=== PATIENT | male | born 1945 | race Caucasian/White ===

== ENCOUNTER → 2020-05-04 | Day surgery (SDC) | payer MEDICARE ==
[2020-04-29 11:15] LABS: BASOPHILS # (AUTO) 0.1 (0.0-0.1); BASOPHILS % 1.1 % (0.0-1.0); EOSINOPHILS # (AUTO) 0.1 (0.0-0.4); EOSINOPHILS % 2.9 % (0.0-6.0); HEMATOCRIT 39.2 % (38.2-49.6); HEMOGLOBIN 12.9 g/dL (14.0-18.0); LYMPHOCYTES # (AUTO) 1.3 (1.0-3.2); LYMPHOCYTES % 28.4 % (18.0-39.1); MEAN CORPUSCULAR HGB CONC 32.9 g/dL (31-35); MEAN CORPUSCULAR VOLUME 97.3 fL (81-99); MONOCYTES # (AUTO) 0.6 (0.2-0.8); MONOCYTES % 12.6 % (4.4-11.3); NEUTROPHILS # (AUTO) 2.4 (2.1-6.9); PLATELET COUNT 187 x10e3/uL (140-360); RED BLOOD COUNT 4.03 x10e6/uL (4.3-5.7); RED CELL DISTRIBUTION WIDTH 13.4 % (11.7-14.4)
--- NOTE | 2020-04-29 11:53 | Diagnostic Imaging Report ---
EXAMINATION: CHEST 2 VIEWS INDICATION: Pre-operative COMPARISON: None FINDINGS: LINES/TUBES:None LUNGS:The lungs are well-inflated. No focal consolidation or pulmonary edema. PLEURA:No pleural effusion or pneumothorax. MEDIASTINUM:The cardiomediastinal silhouette appears normal in size and shape. BONES/SOFT TISSUES:No acute osseous injury. ABDOMEN:No free air under the diaphragm. IMPRESSION: No focal pneumonia or pulmonary edema. Signed by: Candace Vaughn MD on 04/29/2020 11:49 AM
[2020-04-29 15:03] LABS: ANION GAP 16.9 mmol/L (8-16); CALCIUM 9.4 mg/dL (8.4-10.2); CREATININE, SERUM 1.31 mg/dL (0.72-1.25); POTASSIUM 3.9 mmol/L (3.5-5.1)
[~2020-05-04] MED LIST: ACTOS45 MG; ATORVASTATIN CA20 MG PO; BUPIVACAINE HCL 0.5% INJ 30 ML VIAL INJ ONE; BYETTA10 MCG/0.0; CEFAZOLIN SOD 1 GM/NS 50ML 100 ML IV ONE; DEXAMETHASONE SOD PHOS INJ 4 MG/ML VIAL ONE; DEXTROSE 5% 250ML 250 ML IV ONE; DILTIAZEM 24HR180 MG; DYMISTA NASAL S23 GM IH; EPINEPHRINE 1 MG/ML 30ML VIAL ONE; EPINEPHRINE HCL 1:1000 1ML 1 MG/ML AMP ONE; FENTANYL CITRATE/PF 100MCG/2 ML INJ ONE; FINASTERIDE5 MG PO; FLOMAX0.4 MG PO; GLUCOTROL10 MG; KETOROLAC TROMETHAMINE 30 MG/ML VIAL ONE; LASIX20 MG PO; LEXAPRO10 MG PO; LOZOL 2.5MG2.5 MG; MIDAZOLAM HCL 2 MG/2 ML VIAL ONE; MOBIC7.5 MG; OMEGA-31000 MG; ONDANSETRON HCL INJ 2MG/ML 2ML 2 MG/ML VIAL ONE; PRINIVIL20 MG; PROPOFOL IV EMULSION 10 MG/ML 20 ML VIAL ONE; ROCURONIUM BROMIDE 10 MG/ML 5ML VIAL IV ONE; SEVOFLURANE INHAL SOLN 250 ML PEN BTL ONE; SUGAMMADEX SODIUM 200 MG/2 ML VIAL IV ONE; TRULICITY0.75 MG/0. SC; VITAMIN D50000 UNIT; ZOCOR20 MG; ZYLOPRIM100 MG
[2020-05-04 11:00] VITALS: BP 138/68
--- NOTE | 2020-05-04 11:58 | Operative Report ---
DATE OF PROCEDURE: 05/04/2020 SURGEON: SULAIMAN CONTI MD LOCATION: Place of surgery is [facility]. HISTORY: Mr. Ratliff is well known to me. I have been following in the [facility] for ongoing pain of his right shoulder, secondary to an underlying right shoulder rotator cuff tear. The patient also had right shoulder impingement. The patient had elected to forgo any further conservative treatment and proceed on with a diagnostic arthroscopy of his right shoulder. The risks and benefits of surgery have been outlined to the patient, consisting, but not limited to the following: Infection, blood loss, nerve, blood vessel, tendon injury, ongoing pain, stiffness. Informed consent was obtained. The patient was seen and identified in preoperative holding area with present. The right shoulder was marked by myself. The risks and benefits of the surgery are discussed above were also reviewed. Once again, all questions were answered to his own satisfaction. The patient was then given a regional block per Anesthesia and brought back to operative suite. Time-out was taken for Mr. Saleem Ratliff for diagnostic arthroscopy of his right shoulder. All were in agreement including nursing staff, Anesthesia, and myself. The patient was then given a successful general intubation anesthetic and then transferred over to the operative table. The patient has been placed in the beach chair position with the right shoulder fully exposed. The right shoulder was then sterilely prepped and draped using sterile fashion. The shoulder was inflated with 30 mL of sterile saline. A posterior portal was made using a #15 Bard-Jesus blade. The arthroscopy camera was inserted using a blunt trocar. Examination of the anterior compartment shows a significant amount of villonodular synovitis. The anterior working portal was made. The synovectomy was carried out removing the inflamed synovium using a 4.0 shaver. The patient has some fraying of the biceps tendon, specifically at the biceps anchor, which was debrided. The patient was also noted to have multiple small rice loose bodies noted along the mid and posterior compartments and upon closer inspection, the patient had a chondral defect of the humeral head measuring approximately about 6 to 8 mm in diameter with cartilage fibrillation. A lateral portal was made to assist removal, otherwise loose bodies. The rice loose bodies were removed through the posterior and lateral portals using an arthroscopic grasper. The rice loose bodies ranged from 2 to 3 mm size with one large fragment approximately 5 to 6 mm, most likely stemming from the chondral defect. A chondroplasty was completed removing the fibrillated and delaminated cartilage after the rice loose bodies were removed. Again, the posterior labrum did show some marked fraying. He had some degenerative changes of the inferior labrum, which was debrided. The rotator cuff tear was identified, it was at the along the posterior aspect. The tear was abraded. The patient also had an intrasubstance tear noted. Examination of the subacromial space was then completed and the patient was seen marked impingement and arthrosis. There is significant narrowing of the subacromial space. Using a 4.0 bur and shaver, an arthroscopic subacromial decompression was carried out, i.e. acromioplasty. Attention was then turned to the distal clavicle. The patient had arthritic changes of AC joint along with slight inferior osteophyte spur noted. Upon which time, the 4.0 bur and shaver was then used to complete the arthroscopic distal clavicle resection, removing approximately 1 cm in total of the distal clavicle and degenerative AC meniscus using the 4.0 bur and shaver, and this was done arthroscopically, i.e., arthroscopic Jerald procedure. Copious irrigation was carried out. Synovectomy, bursitis, and bursectomy were carried out. Again, the rotator cuff tear was identified and the location was marked. A small incision was made over the marked using 10 Bard-Jesus blade and blunt dissection was carried down splitting the deltoid. The rotator cuff tear was identified. Again, there were two tears, one was through and through tear noted and 6.5 Mitek Healix anchor was deployed after the punch was completed. The two pairs of the sutures were passed through the supraspinatus and infraspinatus tendons; and the tendons were repaired and back down to its bony insertion. We had addressed the intrasubstance tear using the 2-0 Orthocord and the intrasubstance tear was reapproximated and reconstructed. Copious irrigation was then carried out entire wound. First, second, and final counts were correct. Deep layer closed with 1 Ethibond, 0 Vicryl, 2-0 Vicryl, and skin reapproximated with lynne. The patient was placed in Xeroform compressive dressing and shoulder abduction immobilizer was applied and the patient is transferred to PACU in stable condition. PREOPERATIVE DIAGNOSES: 1. Right shoulder rotator labral tear. 2. Right shoulder rotator cuff tear. 3. Right shoulder impingement AC arthrosis. POSTOPERATIVE DIAGNOSES: 1. Type 3 degenerative labral tear of the right shoulder. 2. A complete rotator cuff tear of the right shoulder of the supraspinatus and infraspinatus. 3. Right shoulder impingement AC arthrosis. 4. Multiple rice loose bodies of the right shoulder. 5. 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 6. Villonodular synovitis of the right shoulder. PROCEDURES: 1. Diagnostic arthroscopy of the right shoulder with a type 3 arthroscopic labral debridement. 2. Arthroscopic synovectomy of the right shoulder for villonodular synovitis. 3. Arthroscopic removal of rice loose bodies of the right shoulder. 4. Arthroscopic subacromial decompression i.e. acromioplasty. 5. Arthroscopic distal clavicle resection i.e. Jerald procedure. 6. Open rotator cuff repair and reconstruction of the rotator cuff tendons of the right shoulder: Supraspinatus and infraspinatus. ANESTHESIA: General with regional block. ESTIMATED BLOOD LOSS: Less than 10 to 15 mL. SPECIMENS: Rice bodies, synovium, and loose bodies. COMPLICATIONS: None. Intraoperative findings was degenerative joint disease of the right shoulder as above. The patient seen in PACU. Dressings were clean, dry. Capillary refills are brisk. The intraoperative findings reviewed and discussed with his by telephone. Discharge wound care instructions were given. It is noted that after I completed the procedure, I was notified by Dr. Metzger, the anesthesiologist during the course of the patient's block that the diaphragm may have been effected and that they will continue to monitor the patient closely. He was stable throughout his procedure and we will continue to monitor closely in recovery. Mr. Ratliff was also made aware of this and we will keep a close progress much of him. If there is any indication that he is not stable to be discharged home, he will be kept overnight for observation. MD VICKI SULLIVAN/MIMI /[id number]
== END | disposition home or self-care (01) ==
LOC: OR 05:48
PROVIDERS: ATTEND Orthopaedic Surgery
DX: S43.91XA Sprain of unspecified parts of right shoulder girdle, initial encounter (principal); M75.41 Impingement syndrome of right shoulder; M75.51 Bursitis of right shoulder; M24.111 Other articular cartilage disorders, right shoulder; M25.511 Pain in right shoulder; S43.431A Superior glenoid labrum lesion of right shoulder, initial encounter; Z88.5 Allergy status to narcotic agent; Z82.49 Family history of ischemic heart disease and other diseases of the circulatory system; I10 Essential (primary) hypertension; E11.9 Type 2 diabetes mellitus without complications; M19.011 Primary osteoarthritis, right shoulder; E66.01 Morbid (severe) obesity due to excess calories; Z68.41 Body mass index [BMI] 40.0-44.9, adult; W10.8XXA Fall (on) (from) other stairs and steps, initial encounter; G47.33 Obstructive sleep apnea (adult) (pediatric); F41.9 Anxiety disorder, unspecified; E78.00 Pure hypercholesterolemia, unspecified; M24.011 Loose body in right shoulder; M12.211 Villonodular synovitis (pigmented), right shoulder; Z01.810 Encounter for preprocedural cardiovascular examination; Z01.812 Encounter for preprocedural laboratory examination; Z01.818 Encounter for other preprocedural examination; Z11.59 Encounter for screening for other viral diseases
CPT/HCPCS: 29819; 29821; 29824; 29826; 29827; 36415 ×2; 71046; 80048; 82948; 85025; C1713; J0171; J0690; J1100; J1885; J2250; J2405; J2704; J3010; J7070; U0002